=== PATIENT | female | born 1980 | race Two or more races ===

== ENCOUNTER 2021-03-19 23:07 | Emergency (ER) | payer OTHER ==
[2021-03-19 23:42] VITALS: TEMP 97.6; BMI 30.4
[2021-03-20] MEDS ORDERED: LIDOCAINE 5% TOPICAL PATCH TP ONE (00:04)
[2021-03-20] MEDS ORDERED: LIDOCAINE 5% TOPICAL PATCH ONE (00:14)
[2021-03-20 01:48] LABS: BASO % 0.7 % (0-2.0); EOS % 1.6 % (0-4.5); HEMATOCRIT 42.6 % (32.4-45.2); HEMOGLOBIN 14.6 GM/dL (10.7-15.3); LYMPH % 25.8 % (8-40); MCH 32.9 pg (25.7-33.7); MCHC 34.4 g/dl (32.0-36.0); MEAN CELL VOLUME 95.8 fl (80-96); MEAN PLT VOLUME 8.2 fl (7.5-11.1); MONO % 11.2 % (3.8-10.2); NEUT % 60.7 % (42.8-82.8); PLATELET COUNT 306 10^3/uL (134-434); RBC 4.45 M/mm3 (3.60-5.2); RDW 13.5 % (11.6-15.6); WHITE BLOOD COUNT 8.4 K/mm3 (4.0-10.0)
[2021-03-20 01:55] LABS: INR 0.99 (0.83-1.09); PROTHROMBIN TIME (PATIENT) 11.6 SEC (9.7-13.0)
[2021-03-20 01:57] LABS: ACTIVATED PTT 29.6 SECONDS (25.2-36.5)
[2021-03-20] MEDS ORDERED: morphine SULFATE IMMEDIATE RELEASE 30 MG TAB PO ONE ×2 (01:57→02:01)
[2021-03-20 02:03] LABS: CALCIUM 9.1 mg/dL (8.5-10.1)
[2021-03-20 02:04] LABS: ALBUMIN 3.3 g/dl (3.4-5.0); BLOOD UREA NITROGEN 10.8 mg/dL (7-18)
[2021-03-20 02:07] LABS: CREATININE 0.7 mg/dL (0.55-1.3)
[2021-03-20 02:08] LABS: BILIRUBIN,TOTAL 0.5 mg/dL (0.2-1); TOT PROT 7.3 g/dl (6.4-8.2)
[2021-03-20] MEDS ORDERED: morphine SULFATE IMMEDIATE RELEASE 30 MG TAB ONE (02:09)
[2021-03-20 02:17] VITALS: BP 105/77; PULSE 74
[2021-03-20] MEDS ORDERED: LIDOCAINE PATCH REMOVAL MC SCH (22:00)
== END 2021-03-20 02:19 | disposition home or self-care (01) ==
LOC: JER 23:07
DX: M62.838 Other muscle spasm (principal); N92.0 Excessive and frequent menstruation with regular cycle
CPT/HCPCS: 36415; 76830-TC; 80053; 84703; 85025; 85610; 85730; 86850; 86900; 86901; 93005; 93010; 99284-25

== ENCOUNTER 2021-08-15 14:33 | Emergency (ER) | payer OTHER ==
[2021-08-15 14:52] VITALS: BP 107/70; PULSE 86; TEMP 98.1; BMI 29.7
[2021-08-15] MEDS ORDERED: ACETAMINOPHEN 500 MG TABLET (FP) PO ONE (16:38)
[2021-08-15 17:24] LABS: BASO % 0.7 % (0-2.0); EOS % 1.8 % (0-4.5); HEMATOCRIT 44.5 % (32.4-45.2); LYMPH % 30.5 % (8-40); MCH 32.6 pg (25.7-33.7); MCHC 33.7 g/dl (32.0-36.0); MEAN CELL VOLUME 96.7 fl (80-96); MEAN PLT VOLUME 7.9 fl (7.5-11.1); MONO % 7.3 % (3.8-10.2); NEUT % 59.7 % (42.8-82.8); PLATELET COUNT 356 10^3/uL (134-434); WHITE BLOOD COUNT 10.7 K/mm3 (4.0-10.0)
[2021-08-15 17:25] LABS: URINE APPEARANCE CLEAR; URINE BILIRUBIN NEGATIVE (NEGATIVE); URINE COLOR YELLOW; URINE GLUCOSE (UA) NEGATIVE (NEGATIVE); URINE KETONE NEGATIVE (NEGATIVE); URINE LEUK ESTERASE NEGATIVE (NEGATIVE); URINE NITRITE NEGATIVE (NEGATIVE); URINE PROTEIN NEGATIVE (NEGATIVE); URINE UROBILINOGEN 0.2 mg/dL (0.2-1.0)
[2021-08-15 17:45] LABS: CHLORIDE 108 mmol/L (98-107); SODIUM 141 mmol/L (136-145)
[2021-08-15 17:47] LABS: ALBUMIN 3.4 g/dl (3.4-5.0); ANION GAP 7 MMOL/L (8-16); BLOOD UREA NITROGEN 12.2 mg/dL (7-18); CALCIUM 8.3 mg/dL (8.5-10.1); CO2 26 mmol/L (21-32); GLUCOSE,RANDOM 100 mg/dL (74-106)
[2021-08-15 17:50] LABS: CREATININE 0.6 mg/dL (0.55-1.3); SGOT/AST 17 U/L (15-37); SGPT/ALT 19 U/L (13-61)
[2021-08-15 17:52] LABS: BILIRUBIN,TOTAL 0.3 mg/dL (0.2-1); TOT PROT 6.9 g/dl (6.4-8.2)
[2021-08-15 17:53] LABS: ALK PHOS 47 U/L (45-117)
[2021-08-15] MEDS ORDERED: ACETAMINOPHEN INJECTION 100 ML IVPB ONE (18:11)
== END 2021-08-15 19:08 | disposition home or self-care (01) ==
LOC: JER 14:33
DX: N83.202 Unspecified ovarian cyst, left side (principal)
CPT/HCPCS: 36415; 76830-TC; 80053; 81003; 84702; 85025; 86850; 86900; 86901; 87086; 99284-25

== ENCOUNTER 2021-12-12 04:32 | Day surgery (SDC) | payer OTHER ==
[2021-12-07 10:27] VITALS: BMI 29.7
[2021-12-12] MEDS ORDERED: PROPOFOL 60 ML ONE (08:46)
[2021-12-12] MEDS ORDERED: MIDAZOLAM HCL 2 MG/2 ML SINGLE DOSE VIAL ONE (08:46)
[2021-12-12] MEDS ORDERED: SUCCINYLCHOLINE CHLORIDE 200 MG/10 ML SYRINGE ONE (09:12)
[2021-12-12] MEDS ORDERED: ONDANSETRON 4 MG/2 ML VIAL IVPUSH PRN ×2 (09:42→10:00)
[2021-12-12] MEDS ORDERED: oxyCODONE HCL 5 MG TABLET PO PRN ×3 (09:42→10:00)
[2021-12-12] MEDS ORDERED: LACTATED RINGERS SOLUTION 1,000 ML IV SCH (09:45)
[2021-12-12] MEDS ORDERED: IBUPROFEN 600 MG TABLET (FP) PO PRN (10:00)
[2021-12-12] MEDS ORDERED: ELECTROLYTE-148 SOLN 1,000 ML IV SCH (10:00)
[2021-12-12] MEDS ORDERED: IBUPROFEN 800 MG/8 ML IJ IVPB PRN (10:00)
[2021-12-12 11:47] VITALS: BP 116/70; PULSE 56; RESP 20; TEMP 98
== END 2021-12-12 11:40 | disposition home or self-care (01) ==
LOC: JASU-SURG 04:32
PROVIDERS: ATTEND Obstetrics & Gynecology
PROC: 0UJD8ZZ Inspection of Uterus and Cervix, Via Natural or Artificial Opening Endoscopic (ICD-10-PCS; 2021-12-12)
PROC: 0UDB7ZX Extraction of Endometrium, Via Natural or Artificial Opening, Diagnostic (ICD-10-PCS; principal; 2021-12-12 09:00)
DX: N92.0 Excessive and frequent menstruation with regular cycle (principal)
CPT/HCPCS: 81025; 88305-TC; 94760

== ENCOUNTER 2021-12-21 04:38 | Day surgery (SDC) | payer OTHER ==
[2021-12-19 12:11] VITALS: BMI 31.3
[2021-12-21 10:53] VITALS: TEMP 98.2
[2021-12-21 11:18] VITALS: PULSE 60; RESP 13
[2021-12-21 11:26] VITALS: BP 95/63
== END 2021-12-21 12:07 | disposition home or self-care (01) ==
LOC: JASU-ENDO 04:38
PROVIDERS: ATTEND Internal Medicine Gastroenterology
PROC: 0DJD8ZZ Inspection of Lower Intestinal Tract, Via Natural or Artificial Opening Endoscopic (ICD-10-PCS; principal; 2021-12-21 10:15)
DX: K62.5 Hemorrhage of anus and rectum (principal); K57.30 Diverticulosis of large intestine without perforation or abscess without bleeding
CPT/HCPCS: 81025

== ENCOUNTER 2022-10-26 10:38 | Emergency (ER) | payer OTHER ==
[2022-10-26 10:48] VITALS: BP 108/66; PULSE 80; RESP 17; TEMP 98.5; BMI 36.0
[2022-10-26 12:21] LABS: PH,URINE 5.5 (5.0-8.0); URINE APPEARANCE CLEAR; URINE BILIRUBIN NEGATIVE (NEGATIVE); URINE COLOR YELLOW; URINE GLUCOSE (UA) NEGATIVE (NEGATIVE); URINE KETONE NEGATIVE (NEGATIVE); URINE LEUK ESTERASE NEGATIVE (NEGATIVE); URINE NITRITE NEGATIVE (NEGATIVE); URINE PROTEIN NEGATIVE (NEGATIVE); URINE UROBILINOGEN 0.2 mg/dL (0.2-1.0)
== END 2022-10-26 14:40 | disposition home or self-care (01) ==
LOC: JERFT 10:38
DX: N92.6 Irregular menstruation, unspecified (principal); D25.9 Leiomyoma of uterus, unspecified
CPT/HCPCS: 76830-TC; 81003; 84703; 99284-25

== ENCOUNTER 2024-05-19 11:40 | Emergency (ER) | payer OTHER ==
[2024-05-19 11:51] VITALS: BP 106/65; PULSE 87; RESP 20; TEMP 98.4; BMI 37.8
[2024-05-19 12:40] LABS: URINE APPEARANCE CLEAR; URINE BILIRUBIN NEGATIVE (NEGATIVE); URINE COLOR YELLOW; URINE GLUCOSE (UA) NEGATIVE (NEGATIVE); URINE KETONE NEGATIVE (NEGATIVE); URINE LEUK ESTERASE NEGATIVE (NEGATIVE); URINE NITRITE NEGATIVE (NEGATIVE); URINE PROTEIN TRACE (NEGATIVE); URINE UROBILINOGEN 0.2 mg/dL (0.2-1.0)
[2024-05-19 12:42] LABS: HCG,QUALITATIVE URINE Negative
[2024-05-19] MEDS ORDERED: LIDOCAINE 4% PATCH TP ONE (13:29)
[2024-05-19] MEDS ORDERED: ACETAMINOPHEN 325 MG TABLET (FP) ONE (13:29)
[2024-05-19] MEDS: ACETAMINOPHEN 500 MG TABLET (FP) PO ONE (13:51)
[2024-05-19] MEDS: LIDOCAINE 4% PATCH TP ONE (13:51)
[2024-05-19] MEDS ORDERED: NAPROXEN 500 MG TABLET ONE (15:05)
[2024-05-19] MEDS: NAPROXEN 500 MG TABLET PO ONE (15:07)
[2024-05-19] MEDS ORDERED: LIDOCAINE PATCH REMOVAL MC ONE (22:00)
== END 2024-05-19 15:08 | disposition home or self-care (01) ==
LOC: JER 11:40
DX: M62.838 Other muscle spasm (principal); R10.9 Unspecified abdominal pain
CPT/HCPCS: 76775-TC; 81003; 84703; 87086; 99284-25